=== PATIENT | female | born 1950 | race Caucasian/White ===

== ENCOUNTER → 2017-07-09 | Day surgery (SDC) | payer MEDICARE, MEDICAID ==
--- NOTE | 2017-07-09 08:57 | MMO ---
RIGHT BREAST STEREOTACTIC BIOPSY: Date: 07/09/17 HISTORY: Right breast calcifications. COMPARISON: 06/20/17. FINDINGS: Technically successful stereotactic biopsy of the right breast. Calcifications are present in the stephanie gical sample. Post biopsy clip was placed and is located outside of the needle. Post biopsy mammogram demonstrates surgical clip in the appropriate position. Calcifications are less evident. TECHNIQUE: Consent obtained to perform a right breast stereotactic biopsy. The patient was placed in a prone pos ition on the biopsy table. Calcifications identified. Skin prepped and draped in sterile fashion. 1% lidocaine, buffered with sodium bicarbonate, was used for local anesthesia. Through a dermatotomy, th e needle was positioned in the pre and post-firing location, with the expected calcifications. Stereo tactic biopsy was performed. A total of six 10 gauge core biopsy samples were obtained. Sample was ra diographed. Calcifications were present. Clip was placed. Post clip deployment images were obtained. The patient tolerated the procedure well. No immediate or postprocedure complications. IMPRESSION: Technically successful right breast stereotactic biopsy. Final pathologic diagnosis pending. POS: [facility]
== END ==
LOC: MAMMO 06:46
PROVIDERS: ATTEND Family Medicine
PROC: 0HBT3ZX Excision of Right Breast, Percutaneous Approach, Diagnostic (ICD-10-PCS; principal; 2017-07-09)
DX: N60.81 Other benign mammary dysplasias of right breast (principal); E11.9 Type 2 diabetes mellitus without complications; I10 Essential (primary) hypertension; F32.9 Major depressive disorder, single episode, unspecified; F41.9 Anxiety disorder, unspecified; Z79.84 Long term (current) use of oral hypoglycemic drugs; Z79.82 Long term (current) use of aspirin; Z79.899 Other long term (current) drug therapy; Z98.890 Other specified postprocedural states; Z87.891 Personal history of nicotine dependence
CPT/HCPCS: 19081; 76098; 88305; G0206

== ENCOUNTER 2018-12-14 14:35 | Outpatient (CLI) | payer MEDICAID, MEDICARE ==
--- NOTE | 2018-12-14 15:09 | RAD ---
LEFT SHOULDER 3 VIEWS: Date: 12/14/18 HISTORY: Acute left shoulder pain. FINDINGS: Prominent arthrosis and degenerative changes with osteophytosis, particularly involving the humeral h ead, with AC joint arthrosis. No acute fracture or dislocation. Bony demineralization. IMPRESSION: Left AC joint and glenohumeral joint arthrosis without acute fracture or dislocation. POS: C
--- NOTE | 2018-12-14 15:10 | RAD ---
LEFT HUMERUS 2 VIEWS: Date: 12/14/18 HISTORY: Left arm pain. FINDINGS: There is bony demineralization. No acute fracture or dislocation. Arthrosis and degenerative changes of the shoulder joint and elbow joint. IMPRESSION: No acute fracture or dislocation. POS: C
== END 2018-12-14 14:36 | disposition home or self-care (01) ==
LOC: RAD 14:35
PROVIDERS: ATTEND Family Medicine
DX: M25.512 Pain in left shoulder (principal); M79.602 Pain in left arm; M19.012 Primary osteoarthritis, left shoulder

== ENCOUNTER 2019-05-04 09:15 | Outpatient (CLI) | payer MEDICARE, MEDICAID ==
[~2019-05-04 09:15] MED LIST: EPINEPHrine 1 MG/ML AMP ONE; Iopamidol 300 61% 100 ML VIAL FS ONE; Lidocaine 1% PF 10 ML AMP ONE
--- NOTE | 2019-05-04 11:06 | RAD ---
XR Shoulder Lt Arthrogram History: Shoulder pain. 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 All questions were answered. Informed consent was obtained. Timeout performed. The patient's left shoulder was prepped and draped in normal sterile fashion. 3 mL of lidocaine was i nstilled into the superficial and deep soft tissues. Using fluoroscopic guidance the left shoulder joint was accessed with a 22-gauge spinal needle. 10 mL of contrast solution was instilled into the joint. The patient tolerated the procedure well without complication. The choir singer radiograph demonstrate advanced degenerative disease of the glenohumeral joint with large o steophyte formation of the humeral head/neck junction. Impression: Technically successful fluoroscopic guided left shoulder arthrogram for CT. Fluoroscopy time: 0.3 minutes
--- NOTE | 2019-05-04 11:22 | CT ---
CT Upper Ext Lt W Con History: Osteoarthritis left shoulder Comparison: Shoulder arthrogram same day Findings: Biceps tendon: 2 x 3 mm debris along the extra articular biceps tendon sheath. Extra articu lar and intra-articular biceps tendon is intact. Labrum: Circumferential labral maceration. Rotator cuff: No full-thickness perforation. There is no intra-articular contrast within the subacrom ial/subdeltoid bursa. Mild undersurface fraying of the supraspinatus and infraspinatus tendon. Soft tissues: 14 mm body within the subcoracoid bursa. Bones: Very large osteophytes of the left humeral head/neck junction. Large subcortical cysts and ero sions of the glenoid as well as of the humeral head with complete cartilage loss. The ribs are intact. The lung parenchyma is clear. No axillary adenopathy. Muscles: No significant atrophy. Impression: 1. Intact rotator cuff without full-thickness tear. No extension of intra-articular contrast within t he subacromial/subdeltoid bursa. 2. Complete cartilage loss of the glenoid and humeral head with subcortical erosions and sclerosis. 3. 14 mm body within the subcoracoid bursa. 4. No significant muscle atrophy. 5. Circumferential labral maceration. 6. Large osteophyte formation of the humeral head/neck junction.
== END 2019-05-04 09:16 | disposition home or self-care (01) ==
LOC: RAD 09:15
PROVIDERS: ATTEND Orthopaedic Surgery
DX: M19.012 Primary osteoarthritis, left shoulder (principal); M25.512 Pain in left shoulder; M25.712 Osteophyte, left shoulder
CPT/HCPCS: 23350; J0171; J2001; Q9967

== ENCOUNTER 2019-06-09 10:12 | Outpatient (CLI) | payer MEDICARE, MEDICAID ==
[2019-06-09 14:23] LABS: #Eosinphils 0.4 thou/uL (0.0-0.7); #Lymphocytes 2.3 thou/uL (1.20-3.40); #Monocytes 0.5 thou/uL (0.11-0.59); %Basophils 0.6 % (0.0-1.0); %Eosinophils 4.9 % (0.0-10.0); %Lymphocytes 31.8 % (21.0-51.0); %Neutrophils 55.6 % (42.0-75.0); Hemoglobin 14.3 g/dL (12.0-16.0); Mean Corpuscular HGB CONC 33.5 g/dL (32.0-36.0); Mean Corpuscular Hemoglobin 30.2 pg (27.0-31.0); Mean Corpuscular Volume 90.1 fL (78.0-98.0); Platelet Count 267 thou/uL (130-400); RBC Distribution Width 12.5 % (11.5-14.5); Red Blood Cell (RBC) Count 4.72 mill/uL (4.20-5.40); White Blood Cell (WBC) Count 7.2 thou/uL (4.8-10.8)
[2019-06-09 14:27] LABS: Prothrombin Time 12.7 SEC (12.0-14.7)
[2019-06-09 14:40] LABS: Anion Gap 14 mmol/L (10-20); BUN (Urea Nitrogen) 12 mg/dL (9.8-20.1); Calc. Creatinine Clearance 0 mL/min (70-130); Calcium 9.6 mg/dL (7.8-10.44); Carbon Dioxide 24 mmol/L (23-31); Chloride 108 mmol/L (98-107); Estimated GFR-MDRD 66; Glucose 128 mg/dL (83-110); Potassium 3.3 mmol/L (3.5-5.1); Sodium 143 mmol/L (136-145)
[2019-06-09 15:16] LABS: Bacteria/HPF 2+ HPF (None Seen); Bilirubin Negative (Negative); Blood, Urine Negative (Negative); Clarity Turbid (Clear); Glucose, Urine (Dipstick) Normal (Negative); Leukocyte Negative Leu/uL (Negative); Nitrite Negative (Negative); Protein, Urine (Dipstick) 10 mg/dL (Neg-Trace); RBC/HPF 0-3 HPF (0-3); Squamous Epithelial 21-50 HPF (0-3); Urobilinogen Normal mg/dL (Less than 2)
--- NOTE | 2019-06-09 17:10 | EKG ---
Test Reason : Blood Pressure : / mmHG Vent. Rate : 058 BPM Atrial Rate : 058 BPM P-R Int : 178 ms QRS Dur : 084 ms QT Int : 464 ms P-R-T Axes : 052 028 026 degrees QTc Int : 455 ms Sinus bradycardia Low voltage QRS Nonspecific T wave abnormality Abnormal ECG Confirmed by CRUZ MARTINEZ ([id number]) on 06/09/2019 5:09:54 PM Referred By: HEATHER Confirmed By:CRUZ MARTINEZ
== END 2019-06-09 10:13 | disposition home or self-care (01) ==
LOC: LABBT 10:12
PROVIDERS: ATTEND Orthopaedic Surgery
DX: Z01.818 Encounter for other preprocedural examination (principal); M19.012 Primary osteoarthritis, left shoulder
CPT/HCPCS: 80048; 81001; 85025; 85610; 93005; 93010

== ENCOUNTER 2019-06-09 13:00 | Inpatient (IN) | payer MEDICARE, MEDICAID ==
[2019-06-10] MEDS ORDERED: Tranexamic Acid 1,000 MG/10 ML VIAL ONE (06:02)
[2019-06-10] MEDS ORDERED: Sodium Chloride 0.9% 100 ML ONE (06:02)
[2019-06-10] MEDS ORDERED: Vancomycin HCl 1.5 GM in Sodium Chloride 0.9% 250 ML 300 ML IVPB SCH ×2 (06:15→18:00)
[2019-06-10] MEDS ORDERED: Levofloxacin 500 mg/D5W 100 ml Premix Bag ONE (06:42)
[2019-06-10] MEDS ORDERED: Midazolam HCl 2 mg/2 ml Vial ONE (06:45)
[2019-06-10] MEDS ORDERED: Fentanyl 100 MCG/2 ML VIAL ONE (06:45)
[2019-06-10] MEDS ORDERED: Ondansetron HCl/PF 4 MG/2 ML Vial IVP PRN (08:09)
[2019-06-10] MEDS ORDERED: Promethazine HCl 25 MG/ML VIAL IM PRN ×2 (08:09→08:10)
[2019-06-10] MEDS ORDERED: Promethazine HCl 25 MG/ML VIAL SLOW IVP PRN (08:09)
[2019-06-10] MEDS ORDERED: HYDROcodone/Acetaminophen 10/325 mg Tablet PO PRN ×4 (08:10→09:33)
[2019-06-10] MEDS ORDERED: Fentanyl 100 MCG/2 ML VIAL IV PRN (08:10)
[2019-06-10] MEDS ORDERED: Zolpidem Tartrate 5 MG TAB PO PRN (08:10)
[2019-06-10] MEDS ORDERED: Ondansetron PF 4 MG/2 ML Vial IVP PRN ×2 (08:10→09:33)
[2019-06-10] MEDS ORDERED: Ropivacaine 0.2% 550 ML 550 ML NERVE BLCK SCH (08:10)
[2019-06-10] MEDS ORDERED: traMADol HCl 50 MG TAB PO PRN ×4 (08:10→09:33)
[2019-06-10] MEDS ORDERED: Acetaminophen 325 MG TAB PO PRN ×2 (08:11→09:33)
[2019-06-10] MEDS ORDERED: Methocarbamol 500 MG TAB PO PRN (09:33)
[2019-06-10] MEDS ORDERED: diphenhydrAMINE 50 MG CAP PO PRN (09:33)
[2019-06-10] MEDS ORDERED: Milk Of Magnesia 30 ML UDCUP PO PRN (09:33)
[2019-06-10] MEDS ORDERED: Lactated Ringer's 1,000 ML IV SCH (09:33)
[2019-06-10] MEDS ORDERED: Bisacodyl 10 MG SUPP PR PRN (09:33)
[2019-06-10] MEDS ORDERED: Ondansetron ODT 4 MG TAB PO PRN (09:33)
[2019-06-10] MEDS ORDERED: Methocarbamol 1 GM/10 ML VIAL SLOW IVP PRN (09:33)
[2019-06-10] MEDS ORDERED: Ketorolac Tromethamine 30 MG/ML VIAL IVP PRN (09:33)
[2019-06-10] MEDS ORDERED: Ondansetron PF 4 MG/2 ML Vial ONE (09:58)
--- NOTE | 2019-06-10 10:32 | RAD ---
LEFT SHOULDER 2 VIEWS: Date: 06/10/19 HISTORY: Shoulder replacement. FINDINGS: Humeral head prosthesis in place. Alignment anatomic. No perihardware lucency. Skin yogesh and soft tissue gas are evident. IMPRESSION: Left humeral head prosthesis is in good radiographic position. POS: [facility]
[2019-06-10] MEDS: 1/2 NS w/KCL 20 mEq 1,000 ML IV SCH (11:20)
[2019-06-10 11:59] VITALS: BMI 36.2
[2019-06-10] MEDS ORDERED: Prevnar 13-Val Conj/PF 0.5 ML SYRINGE IM ONE (12:15)
[2019-06-10] MEDS ORDERED: FLU VACC TS2019-20(65YR UP)/PF 180 MCG/0.5 ML SYRINGE IM ONE (12:15)
[2019-06-10] MEDS: CEFAZOLIN 2 GM in Premix Bag 1 BAG IVPB SCH (15:33)
[2019-06-10] MEDS ORDERED: Dextrose 50% Abboject 50 ML SYRINGE SLOW IVP PRN (16:16)
[2019-06-10] MEDS ORDERED: Dextrose 5% in Water 1,000 ML IV PRN (16:16)
[2019-06-10] MEDS: Insulin Regular 300 UNITS/3 ML VIAL SC PRN (16:40)
[2019-06-10] MEDS: Famotidine 20 MG TAB PO SCH (20:02)
[2019-06-10] MEDS ORDERED: Gabapentin 100 MG CAP PO SCH (21:00)
[2019-06-10] MEDS ORDERED: Atorvastatin Calcium 40 MG TAB PO SCH (21:00)
[2019-06-11] MEDS: 1/2 NS w/KCL 20 mEq 1,000 ML IV SCH (00:03)
[2019-06-11] MEDS: CEFAZOLIN 2 GM in Premix Bag 1 BAG IVPB SCH (00:03)
[2019-06-11] MEDS: Insulin Regular 300 UNITS/3 ML VIAL SC PRN (05:49)
[2019-06-11] MEDS ORDERED: Levothyroxine Sodium 75 MCG TAB PO SCH (06:00)
[2019-06-11] MEDS ORDERED: glipiZIDE 5 MG TAB PO SCH (07:30)
[2019-06-11] MEDS ORDERED: metFORMIN 500 MG TAB PO SCH (08:00)
--- NOTE | 2019-06-11 08:19 | OP ---
DATE OF PROCEDURE: 06/10/2019 PREOPERATIVE DIAGNOSES: Left shoulder osteoarthritis, biceps tendinopathy. PROCEDURES PERFORMED: 1. Left total shoulder arthroplasty. 2. Left biceps tenodesis. GROUND HAND: Polo Mena PA-C ANESTHESIA: The patient received a general endotracheal intubation with interscalene block. ESTIMATED BLOOD LOSS: 200 mL. TOURNIQUET TIME: None. IMPLANTS: Tornier S40 CortiLoc glenoid with a 3B flex stem and a 43 x 16 mm high offset. ANTIBIOTICS: Ancef 2 g, vancomycin 1.5 g, Levaquin 500, TXA 1 g. COMPLICATIONS: None. HISTORY OF PRESENT ILLNESS: Ms. Franco is a 69-year-old female with left shoulder pain for many years. The patient failed conservative measures and desired to proceed with operative intervention. She understood the risks and benefits of the surgery to include pain, scar, bleeding, infection, damage to vital structures, decreased range of motion or strength, need for further surgeries, failure of procedure, continued pain despite surgical intervention, infection, loss of life or limb. The patient understood the risks and benefits and elected to proceed. DESCRIPTION OF PROCEDURE: Time-out was performed designating the patient's left upper extremity as the operative site based on site, consents, and marking. After a time-out, the patient's left upper extremity was prepped and draped in a sterile fashion. After antibiotics and TXA, we then made an incision down over the patient's coracoid in line with the deltopectoral interval, came down, dissected and took the vein laterally. Ultimately, it was tented and we had to sacrifice and cauterized the vein. We then came through this interval, took down 1 cm of superior aspect of the pec. I found the biceps. We came through the biceps, came up, and followed into the interval. We used a small osteotome to do a lesser tuberosity osteotomy and just took a thin wafer of bone and marked it for future. We came in our capsular release. We cut the biceps and exposed the entire head. After exposing the head, we knocked some osteophytes off to better expose the shoulder. We then used a saw to cut the articular margin off and remove the articular margin. We then came back and we removed osteophytes inferiorly, started with opening awl bronimisha. This went to a size 3, cut at 30 degrees external rotation, removed the osteophytes, put a size 3 stem, tapped into place. We had a put over the top, removed the glenoid. We exposed the glenoid, a 360 release, the patient's labrum, labrectomy, protecting the nerve inferiorly. After 360 degree release, we exposed the glenoid, placed in a small CortiLoc guide in position, drilled a hole, and we placed a reamer, reamed the bone, it was of poor bone quality to her bone. We placed the center pegged hole into position. We drilled all 3 holes, removed the bone, and washed. We placed our trial, which did well. We started cement. We cemented 3 external pegs, not the center peg cemented in place, and we left it with a pressure, the humerus and moved back to humerus. Removed the stem but felt like high offset fit well. We removed it, we placed 2 drill holes for LTO with sutures through and out of bone and through the biceps interval. After the cement had hardened after 18 minutes, we press-fit our stem into place. We passed one more suture around the stem and out by the greater tuberosity to help with kind of a double row across top stitch. We sewed our 3 stitches down repairing our rotator cuff tuberosity LTO. We then tenodesed the biceps with #2 Vicryl, #2 Ethibond. We used a 5 stitch, was holding subscap to a double row over the top through the tuberosity. A second stitch to cut the sutures. We closed the interval with #2 Ethibond. We washed and we then closed the deltopectoral with 0, 2-0, and yogesh. The patient will be admitted postop. We followed inhouse, received preoperative antibiotics, and will be discharged home tomorrow if she is doing well. Job ID: [id number]
[2019-06-11 08:44] VITALS: BP 139/69; TEMP 98.6
[2019-06-11] MEDS: Famotidine 20 MG TAB PO SCH (08:54)
[2019-06-11] MEDS ORDERED: Citalopram 20 MG TAB PO SCH (09:00)
[2019-06-11] MEDS ORDERED: Lisinopril 20 MG TAB PO SCH (09:00)
[2019-06-11] MEDS ORDERED: Hydrochlorothiazide 25 MG TAB PO SCH (09:00)
[2019-06-11] MEDS ORDERED: Ciprofloxacin 500 MG TAB PO SCH (20:00)
== END 2019-06-11 10:43 | disposition home or self-care (01) | DRG 483 ==
LOC: SJJU 06-10 05:39 → SURG A 06-10 11:00 → EEVIPCON 06-10 13:00
PROVIDERS: ADMIT Orthopaedic Surgery; ATTEND Orthopaedic Surgery
PROC: 0RRK0JZ Replacement of Left Shoulder Joint with Synthetic Substitute, Open Approach (ICD-10-PCS; principal; 2019-06-10)
PROC: 3E02340 Introduction of Influenza Vaccine into Muscle, Percutaneous Approach (ICD-10-PCS; 2019-06-11)
PROC: 3E0234Z Introduction of Serum, Toxoid and Vaccine into Muscle, Percutaneous Approach (ICD-10-PCS; 2019-06-11)
DX: M19.012 Primary osteoarthritis, left shoulder (principal); Z96.653 Presence of artificial knee joint, bilateral; Z23 Encounter for immunization
CPT/HCPCS: 36416; 80048; 81001; 85025; 85610; 90471; 90662; 90670; 93005; A4306; C1713; G0008; G0009; J0690; J1815; J1956; J2250; J2405; J2795; J3010; J3370; J3480; J3490; J7050

== ENCOUNTER 2020-04-13 11:26 | Outpatient (CLI) | payer MEDICAID, MEDICARE ==
--- NOTE | 2020-04-13 12:04 | RAD ---
LEFT HAND 3 VIEWS: Date: 04/13/2020 HISTORY: Left hand pain. Injury. FINDINGS/IMPRESSION: No acute fracture or dislocation is identified. POS: [facility]
--- NOTE | 2020-04-13 12:05 | RAD ---
LEFT WRIST 3 VIEWS: Date: 04/13/2020 HISTORY: Injury, left wrist pain. FINDINGS/IMPRESSION: No acute fracture or dislocation is seen. If symptoms do not improve, a follow-up exam should be obtained in 7-10 days. POS: [facility]
== END 2020-04-13 11:27 | disposition home or self-care (01) ==
LOC: BICRAD 11:26
PROVIDERS: ATTEND Family Medicine
DX: M79.642 Pain in left hand (principal)

== ENCOUNTER 2020-06-16 09:43 | Outpatient (CLI) | payer MEDICARE, MEDICAID ==
--- NOTE | 2020-06-16 13:03 | BD ---
DEXA BONE DENSITY STUDY: Date: 06/16/2020 HISTORY: Postmenopausal. FINDINGS: Lumbar Spine: BMD (g/cm2) L1 1.098 T-Score: +1.0 L2 1.119 T-Score: +0.8 L3 1.046 T-Score: -0.3 L4 1.062 T-Score: +0.0 Total 1.082 T-Score: +0.3 Left Femoral Neck: 0.575 T-Score: -2.5 Total Femur: 0.778 T-Score: -1.3 IMPRESSION: Normal bone mineral density of the lumbar spine and osteoporosis of the left femoral neck. POS: [facility]
--- NOTE | 2020-06-16 13:57 | MRI ---
MRI OF LEFT WRIST PERFORMED WITHOUT CONTRAST ENHANCEMENT: Date: 06/16/2020 HISTORY: Wrist pain. Patient hit hand on a table with constant pain on dorsal side. Evaluation for triangular fibrocartilage abnormality. FINDINGS: This exam is extremely limited due to motion artifact and patient moved so much that some of the imag es did not even include the entire wrist. The patient refused any further examination and states that they were not returning. The carpal tunnel region appears unremarkable. Some mild tenosynovitis changes of ECRB and ECRL tendo ns. There is so much motion artifact and the fact that the patient moved caused a large portion of this t o not be included on the exam, but there appears to be abnormal relationship between the scaphoid gianfranco ate with the distance widened, suggesting scapholunate ligament tear. The lunate appears slightly arjun santana tilted. The relationship between the scaphoid and lunate is difficult to assess as on the coron al this is only partially included on some of these images. The triangular fibrocartilage is never well visualized as some of the coronal images did not even get to the area of triangular fibrocartilage, although the T1 sequence shows a very heterogeneous appear ance to the triangular fibrocartilage. On the volar side of the wrist at this level, there is what wo uld suggest the possibility of underlying injury. Carpal tunnel region is unremarkable. IMPRESSION: 1. Very limited examination. The patient moved during the study and some of the images do not even i nclude all of the carpal bone area and the patient refused to return. 2. Probable scapholunate ligament tear as there is abnormal relationship between the scaphoid and sandip fatimah. The lunate appears dorsally tilted. Clinical correlation would be recommended. 3. Triangular fibrocartilage is never well assessed, although on one coronal sequence which includes this area, it appears very inhomogeneous in the mid substance and there is a synovial cyst on the vo lar side. POS: [facility]
== END 2020-06-16 09:44 | disposition home or self-care (01) ==
LOC: BICMAMMO 09:43
PROVIDERS: ATTEND Orthopaedic Surgery Hand Surgery
DX: M81.0 Age-related osteoporosis without current pathological fracture (principal); S63.592A Other specified sprain of left wrist, initial encounter
CPT/HCPCS: 77080

== ENCOUNTER 2020-12-06 10:59 | Outpatient (CLI) | payer MEDICARE, MEDICAID | END 2020-12-06 11:00 | disposition home or self-care (01) | LOC: BICRAD 10:59 | PROVIDERS: ATTEND Family Medicine | DX: R10.31 Right lower quadrant pain (principal) ==